=== PATIENT | male | born 1995 | race Hispanic/Latino ===

== ENCOUNTER 2018-08-30 11:49 | Emergency (ER) | payer SELFPAY ==
[~2018-08-30] VITALS: Ht 180.3 cm; Wt 88.5 kg
[2018-08-30] MEDS ORDERED: LIDOCAINE 1% W/EPINEPHRINE 20 ML VIAL INJ ONE (12:00)
[2018-08-30] MEDS ORDERED: TETANUS/DIPHTHERIA TOX ADULT 0.5 ML SYR IM ONE (12:00)
--- NOTE | 2018-08-30 13:41 | Diagnostic Imaging Report ---
CT BRAIN WO HISTORY: Trauma to face COMPARISON: None. TECHNIQUE: Noncontrast axial scans were obtained from skull base to the vertex. Coronal and sagittal reconstructions obtained from the axial data. One or more of the following dose reduction techniques were used: Automated exposure control, adjustment of the mA and/or kV according to patient size, and/or utilization of iterative reconstruction technique. DISCUSSION: Scalp/Skull: Unremarkable. Brain sulci: Appropriate for patient's age. Ventricles: Normal in size and configuration. No hydrocephalus. Extra-axial spaces: No masses or fluid collections. Parenchyma: No abnormal densities. No masses, hemorrhage, or large vascular territory acute infarct. Dural sinuses: No abnormal densities. Sellar/Suprasellar region: Intact. Skull base: Intact. Incidental findings: None. IMPRESSION: No intracranial abnormalities. Signed by: Dr. Barrett De Anda M.D. on 08/30/2018 1:38 PM
--- NOTE | 2018-08-30 13:44 | Diagnostic Imaging Report ---
CT CERVICAL SPINE WO HISTORY: Trauma COMPARISON: Concurrent head CT TECHNIQUE: CT of the cervical spine without contrast. Sagittal and coronal reformations were created. One or more of the following dose reduction techniques were used: Automated exposure control, adjustment of the mA and/or kV according to patient size, and/or utilization of iterative reconstruction technique. FINDINGS: Cervical lordosis is straightened. There is no scoliosis or subluxation. No fractures, compression deformity, or destructive osseous lesions are seen. The craniocervical junction is intact. No gross spinal canal masses are seen. The paravertebral and paraspinal soft tissues are unremarkable. The disc spaces are preserved. IMPRESSION: No acute osseous abnormalities. Signed by: Dr. Barrett De Anda M.D. on 08/30/2018 1:41 PM
--- NOTE | 2018-08-30 13:51 | Diagnostic Imaging Report ---
CT MAXIO FAC/PARANAS WO HISTORY: Trauma COMPARISON: Concurrent head and cervical spine CT TECHNIQUE: Axial CT images through the face were obtained without contrast. Coronal/sagittal reformations were created. One or more of the following dose reduction techniques were used: Automated exposure control, adjustment of the mA and/or kV according to patient size, and/or utilization of iterative reconstruction technique. DISCUSSION: There is a questionable minimally displaced right nasal bone fracture. No additional acute fracture is seen. No destructive osseous lesions are seen. The orbits are intact. Intraorbital contents are grossly unremarkable. There is mild mucosal thickening in the right maxillary sinus. The paranasal sinuses are otherwise grossly clear. The palatine tonsils are mildly prominent IMPRESSION: Questionable, minimally displaced right nasal fracture. No other acute osseous abnormalities in the face. Signed by: Dr. Barrett De Anda M.D. on 08/30/2018 1:48 PM
--- NOTE | 2018-08-30 14:26 | Diagnostic Imaging Report ---
EXAMINATION: PA and lateral views of the chest. COMPARISON: None CLINICAL HISTORY: Broken teeth, rule out ingestion of foreign body DISCUSSION: Lungs are well-inflated. No focal airspace consolidation, pleural effusion, or pneumothorax. Cardiomediastinal contour and pulmonary vasculature are within normal limits. No acute osseous abnormality. IMPRESSION: No acute cardiopulmonary abnormality. No radiographic findings of aspiration in this patient with reported history of fractured teeth. Signed by: Dr. Renny Zuluaga M.D. on 08/30/2018 2:23 PM
[2018-08-30] MEDS ORDERED: IBUPROFEN 600 MG TAB PO ONE (14:30)
[2018-08-30] MEDS ORDERED: CLINDAMYCIN HC300 MG PO (16:30)
[2018-08-30] MEDS ORDERED: TYLENOL WITH C1 EACH PO (16:30)
[2018-08-30 16:39] VITALS: BP 155/85
== END 2018-08-30 17:02 | disposition home or self-care (01) ==
LOC: ER 11:49
DX: S01.511A Laceration without foreign body of lip, initial encounter (principal); S02.5XXA Fracture of tooth (traumatic), initial encounter for closed fracture; W22.8XXA Striking against or struck by other objects, initial encounter; Y99.0 Civilian activity done for income or pay
CPT/HCPCS: 70450; 70486; 71046; 72125; 90714; 99284

== ENCOUNTER 2018-11-14 11:23 | Emergency (ER) | payer OTHER ==
[~2018-11-14] VITALS: Ht 180.3 cm; Wt 88.9 kg
[~2018-11-14 11:23] MED LIST: CLINDAMYCIN HC300 MG PO; TYLENOL WITH C1 EACH PO
--- OUTSIDE RECORDS SUMMARY | 2018-11-14 11:26 | XMS REPORT ---
Author Author [facility] Address Unknown Phone Unavailable Care Team Providers Care Spreader Box Operator Name Role Phone Ayde CORNELL Unavailable Unavailable Problems This patient has no known problems. Allergies, Adverse Reactions, Alerts This patient has no known allergies or adverse reactions. Medications This patient has no known medications. Results Test Description Test Time Test Comments Text Results Atomic Results Result Comments CHEST 2 VIEWS 2018-08-30 14:21:00 [place] [address] Patient Name: SAILAJA ONOFRE MR #: [id number] : 1995 Age/Sex: 23/M Req #: [id number] Adm Physician: Ordered by: TERE SMALLS FINANCIAL MANAGEMENT ANALYST Report #: [id number] Location: ER Room/Bed: Procedure: [id number] DX/CHEST 2 VIEWS Exam Date: Exam Time: REPORT STATUS: Signed EXAMINATION: PA and lateral views of the chest. COMPARISON: None CLINICAL HISTORY: Broken teeth, rule out ingestion of foreign body DISCUSSION: Lungs are well-inflated. No focal airspace consolidation, pleural effusion, or pneumothorax. Cardiomediastinal contour and pulmonary vasculature are within normal limits. No acute osseous abnormality. IMPRESSION: No acute cardiopulmonary abnormality. No radiographic findings of aspiration in this patient with reported history of fractured teeth. Signed by: Dr. Terri Sanchez M.D. on 08/30/2018 2:23 PM Dictated By: TERRI SANCHEZ MD 22 Transcribed By: JG on 08/30/181422 COPY TO: TERE SMALLS NP CT MAXIO FAC/PARANAS WO 2018-08-30 13:41:00 [place] [address] Patient Name: SAILAJA ONOFRE MR #: [id number] : 1995 Age/Sex: 23/M Req #: [id number] Adm Physician: Ordered by: HEMALATHA CORNELL MD Report #: [id number] Location: ER Room/Bed: Procedure: [id number] CT/CT MAXIO FAC/PARANAS WO Exam Date: Exam Time: REPORT STATUS: Signed CT MAXIO FAC/PARANAS WO HISTORY: Trauma COMPARISON: Concurrent head and cervical spine CT TECHNIQUE: Axial CT images through the face were obtained without contrast. Coronal/sagittal reformations were created. One or more of the following dose reduction techniques were used: Automated exposure control, adjustment of the mA and/or kV according to patient size, and/or utilization of iterative reconstruction technique. DISCUSSION: There is a questionable minimally displaced right nasal bone fracture. No additional acute fracture is seen. No destructive osseous lesions are seen. The orbits are intact. Intraorbital contents are grossly unremarkable. There is mild mucosal thickening in the right maxillary sinus. The paranasal sinuses are otherwise grossly clear. The palatine tonsils are mildly prominent IMPRESSION: Questionable, minimally displaced right nasal fracture. No other acute osseous abnormalities in the face. Signed by: Dr. Barrett De Anda M.D. on 08/30/2018 1:48 PM Dictated By: BARRETT DE ANDA MD 47 Transcribed By: JG on 08/30/181347 COPY TO: HEMALATHA CORNELL MD CT CERVICAL SPINE WO 2018-08-30 13:39:00 [facility] [address] [place] [address] Patient Name: SAILAJA ONOFRE MR #: [id number] : 1995 Age/Sex: 23/M Req #: [id number] Adm Physician: Ordered by: HEMALATHA CORNELL MD Report #: [id number] Location: ER Room/Bed: Procedure: [id number] CT/CT CERVICAL SPINE WO Exam Date: Exam Time: REPORT STATUS: Signed CT CERVICAL SPINE WO HISTORY: Trauma COMPARISON: Concurrent head CT TECHNIQUE: CT of the cervical spine without contrast. Sagittal and coronal reformations were created. One or more of the following dose reduction techniques were used: Automated exposure control, adjustment of the mA and/or kV according to patient size, and/or utilization of iterative reconstruction technique. FINDINGS: Cervical lordosis is straightened. There is no scoliosis or subluxation. No fractures, compression deformity, or destructive osseous lesions are seen. The craniocervical junction is intact. No gross spinal canal masses are seen. The paravertebral and paraspinal soft tissues are unremarkable. The disc spaces are preserved. IMPRESSION: No acute osseous abnormalities. Signed by: Dr. Barrett De Anda M.D. on 08/30/2018 1:41 PM Dictated By: BARRETT DE ANDA MD 40 Transcribed By: JG on 08/30/18 134 COPY TO: HEMALATHA CORNELL MD CT BRAIN WO 2018-08-30 13:35:00 [place] [address] Patient Name: SAILAJA ONOFRE MR #: [id number] : 1995 Age/Sex: 23/M Req #: [id number] Adm Physician: Ordered by: TERE SMALLS NP Report #: [id number] Location: ER Room/Bed: Procedure: [id number] CT/CT BRAIN WO Exam Date: Exam Time: REPORT STATUS: Signed CT BRAIN WO HISTORY: Trauma to face COMPARISON: None. TECHNI QUE: Noncontrast axial scans were obtained from skull base to the vertex. Coronal and sagittal reconstructions obtained from the axial data. One or more of the following dose reduction techniques were used: Automated exposure control, adjustment of the mA and/or kV according to patient size, and/or utilization of iterative reconstruction technique. DISCUSSION: Scalp/Skull: Unremarkable. Brain sulci: Appropriate for patient's age. Ventricles: Normal in size and configuration. No hydrocephalus. Extra-axial spaces: No masses or fluid collections. Parenchyma: No abnormal densities. No masses, hemorrhage, or large vascular territory acute infarct. Dural sinuses: No abnormal densities. Sellar/Suprasellar region: Intact. Skull base: Intact. Incidental findings: None. IMPRESSION: No intracranial abnormalities. Signed by: Dr. Barrett De Anda M.D. on 08/30/2018 1:38 PM Dictated By: BARRETT DE ANDA MD Electronical ly Signed By: BARRETT DE ANDA MD on 08/30/182 Transcribed By: JG on 08/30/181337 COPY TO: TERE SMALLS NP
[2018-11-14 12:33] LABS: BASOPHILS # (AUTO) 0.1 (0.0-0.1); BASOPHILS % 0.8 % (0.0-1.0); EOSINOPHILS # (AUTO) 0.3 (0.0-0.4); EOSINOPHILS % 3.4 % (0.0-6.0); HEMATOCRIT 43.4 % (38.2-49.6); HEMOGLOBIN 14.5 g/dL (14.0-18.0); LYMPHOCYTES # (AUTO) 2.1 (1.0-3.2); LYMPHOCYTES % 27.7 % (18.0-39.1); MEAN CORPUSCULAR HGB CONC 33.4 g/dL (31-35); MEAN CORPUSCULAR VOLUME 89.9 fL (81-99); MONOCYTES # (AUTO) 0.5 (0.2-0.8); MONOCYTES % 7.3 % (4.4-11.3); NEUTROPHILS # (AUTO) 4.5 (2.1-6.9); NEUTROPHILS % 60.5 % (38.7-80.0); PLATELET COUNT 202 x10e3/uL (140-360); RED BLOOD COUNT 4.83 x10e6/uL (4.3-5.7); RED CELL DISTRIBUTION WIDTH 13.4 % (11.7-14.4)
--- NOTE | 2018-11-14 12:42 | Diagnostic Imaging Report ---
EXAMINATION: Head CT HISTORY: Headache, history of fall/trauma 2 months ago, syncopal episodes and nose bleeding COMPARISON: Head CT 08/30/2018 TECHNIQUE: Multidetector axial images were obtained without contrast from the foramen magnum to the vertex . The images were reconstructed using brain and bone algorithms. Thin section brain images were reformatted into coronal and sagittal planes. Image quality: Motion/streaking artifact limits the evaluation of the skull base and posterior cranial fossa. Dose modulation, iterative reconstruction, and/or weight based adjustment of the mA/kV was utilized to reduce the radiation dose to as low as reasonably achievable. FINDINGS: Parenchyma: 1. No abnormal densities. 2. No mass or hemorrhage. No CT evidence of acute territorial vascular insult. Extra-axial spaces:No abnormal density. No extra-axial fluid collections Brain volume: Normal for age. Ventricles: No hydrocephalus or displacement. Arteries: No density suggestive of thrombus. Dural sinuses: No abnormal density. Extra-axial spaces: No abnormal density. Foramen magnum: No mass, Chiari malformation, or basilar invagination. Sella: No obvious mass. Paranasal/mastoid sinuses: Imaged portions unremarkable. Skull/Scalp: No lytic or blastic lesions. No fractures. IMPRESSION: Normal head CT, no changes compared to head CT 08/30/2018. Signed by: Dr. Ruth Ortiz M.D. on 11/14/2018 12:38 PM
[2018-11-14 12:50] LABS: ALANINE AMINOTRANSFERASE 40 IU/L (0-55); ALBUMIN/GLOBULIN RATIO 1.5 (0.8-2.0); ALKALINE PHOSPHATASE 67 IU/L (40-150); ANION GAP 10.2 mmol/L (8-16); BLOOD UREA NITROGEN 16 mg/dL (7-26); BUN/CREATININE RATIO 20 (6-25); CALCIUM 9.8 mg/dL (8.4-10.2); CARBON DIOXIDE 29 mmol/L (22-29); CHLORIDE 104 mmol/L (98-107); CREATININE, SERUM 0.79 mg/dL (0.72-1.25); EST GLOMERULAR FILTRATION RATE > 60 ML/MIN (60-); GLUCOSE 86 mg/dL (74-118); POTASSIUM 4.2 mmol/L (3.5-5.1); SODIUM 139 mmol/L (136-145)
== END 2018-11-14 14:40 | disposition home or self-care (01) ==
LOC: ER 11:23
DX: R55 Syncope and collapse (principal); S06.0X0A Concussion without loss of consciousness, initial encounter; R04.0 Epistaxis; F17.210 Nicotine dependence, cigarettes, uncomplicated
CPT/HCPCS: 36415; 70450; 80053; 85025; 93005; 99284